=== PATIENT | female | born 1980 | race Caucasian/White ===

== ENCOUNTER 2016-10-12 17:02 | Emergency (ER) | payer SELFPAY ==
[2016-10-12 17:08] VITALS: BP 124/77
--- NOTE | 2016-10-12 17:21 | ERNOTE ---
ENT HPI Date of Service: 10/12/16 Presenting Symptoms: dental pain Time Seen by Provider: 10/12/16 17:09 Source: patient, family Exam Limitations: no limitations - Immun/Allergies/Home Medications Immunizations: IMMUNIZATION HX Immunizations Up to Date Yes History of Influenza Vaccine No Hx Pneumococcal Vaccination No Allergies/Adverse Reactions: Allergies Allergy/AdvReac Type Severity Reaction Status Date / Time acetaminophen Allergy Verified 10/12/16 17:10 [From Tylenol-Codeine #3] codeine phosphate Allergy Verified 10/12/16 17:10 [From Tylenol-Codeine #3] Home Medications: HOME MEDICATIONS Amox Tr/Potassium Clavulanate [Augmentin 500-125 Tablet] 500 mg PO TID #42 tab 10/12/16 [Last Taken Unknown] HYDROcodone/ACETAMINOPHEN [[place] 5-325] 1 - 2 tab PO QID PRN #30 tab 10/12/16 [ Last Taken Unknown] - History of Present Illness Narrative: This is a 36-year-old woman with dental pain. It began about one week ago, and worsened today. This morning she woke with her left mandible swollen and tender. There has been no fever chills or sweats. The swelling and pain have worsened. Brny-bni-ecabohf medications have not helped. She has no dental insurance, and at the present time cannot afford to see a dentist. She understands that this is the ultimate treatment that is required for her problem. Severity: Present: moderate ENT Location: Present: dental Prearrival Treatment: Present: over the counter meds Modifying Factors - Improves: Reports: nothing Modifying Factors - Worsens: Reports: heat, cold, other - eating Associated Symptoms - ENT: Reports: tooth pain, jaw swelling Prior Treament: Reports: similar symptoms before. Denies: recently seen, treated by physician, currently on antibiotics Review of Systems - Review of Systems Constitutional: Present: no symptoms reported EYE: Present: no symptoms reported ENT: Present: See HPI Respiratory: Present: no symptoms reported Cardiology: Present: no symptoms reported Gastrointestinal/Abdominal: Present: no symptoms reported Genitourinary: Present: no symptoms reported Musculoskeletal: Present: no symptoms reported Skin: Present: no symptoms reported Neurological: Present: no symptoms reported Endocrine: Present: no symptoms reported Hematologic/Lymphatic: Present: no symptoms reported Psych: Present: no symptoms reported All Other Systems: All systems neg except as marked - Patient's Past Medical History Patient History - Medical: No pertinent hx Patient History - Cardiac/Respiratory: No pertinent hx Patient History - Cancer: No Hx of Cancer Patient History - Surgical Procedures: Cholecystectomy, Tubal Ligation - Social History Living Situations: home Smoking Status: Current every day smoker Alcohol Use: occasionally Drug Use: none Physical Exam - Physical Exam General Appearance: Present: wd/wn, alert, no apparent distress Eye Exam: Normal inspection: bilateral, PERRL: bilateral, EOMI: bilateral Ears, Nose, Throat: Present: normal ENT inspection, hearing grossly normal, other - carious molar, left, mandible. The left mandible is moderately swollen and tender itself. Neck: Present: normal inspection, supple. Absent: lymphadenopathy (L) Respiratory: Present: no respiratory distress Cardiovascular/Chest: Present: regular rate, rhythm Extremity Exam: Present: no edema Neurological Exam: Present: alert, oriented Skin Exam: Present: normal color, warm/dry ED Progress - Vital Signs Patient's Vital Signs:: I have reviewed the patient's vital signs. Vital Signs: Vital Signs 10/12/16 17:04 Temperature 36.8 C Pulse Rate 97 Respiratory 12 Rate Blood Pressure 124/77 O2 Sat by Pulse 100 Oximetry - Progress/Reassessment Chief Complaint: Dental Problem Departure Clinical Impression: Dental abscess - Departure Disposition: Home self-care Condition: Good Instructions: Dental Abscess, [id number] Additional Instructions: Find a dentist miguel. Prescriptions: Amox Tr/Potassium Clavulanate [Augmentin 500-125 Tablet] 500 mg PO TID #42 tab HYDROcodone/ACETAMINOPHEN [[place] 5-325] 1 - 2 tab PO QID PRN #30 tab PRN Reason: Pain
== END 2016-10-12 17:21 | disposition home or self-care (01) ==
LOC: ER 17:02
DX: K04.7 Periapical abscess without sinus (principal); F17.210 Nicotine dependence, cigarettes, uncomplicated; Z90.49 Acquired absence of other specified parts of digestive tract

== ENCOUNTER 2016-12-02 12:59 | Emergency (ER) | payer MEDICAID, OTHER ==
[2016-12-02 13:22] VITALS: BP 127/81
--- NOTE | 2016-12-02 14:23 | ERNOTE ---
Upper Extremity HPI - Narrative Date of Service: 12/02/16 - General Extremities Pain Location: wrist: right Time Seen by Provider: 12/02/16 13:51 Source: patient Exam Limitations: no limitations - Immun/Allergies/Home Medications Immunizations: IMMUNIZATION HX Immunizations Up to Date Yes History of Influenza Vaccine No Hx Pneumococcal Vaccination No Allergies/Adverse Reactions: Allergies Allergy/AdvReac Type Severity Reaction Status Date / Time acetaminophen Allergy Verified 12/02/16 13:21 [From Tylenol-Codeine #3] codeine phosphate Allergy Verified 12/02/16 13:21 [From Tylenol-Codeine #3] Home Medications: HOME MEDICATIONS NK [No Home Medication] 12/02/16 [Last Taken Unknown] - History of Present Illness Narrative: patient states that 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 after a few min of using the maching her hand starts to tingle and go numb. she has pain during these episodes. patient states she has been wearing a cockup wrist splint at night to help with discmfort for the last 2 months. Stated that she is no longer getting relief from the splint. Occurred: other - has been present x 2 months Location of Incident: work Severity: mild Method of Injury: Reports: other - no physical injury observed, but states she has numbness and pain with Phalen test. Modifying Factors - (Improves): Reports: rest Modifying Factors - (Worsens): Reports: other - pain and numbness with phalen test Associated Symptoms: Reports: tingling, weakness, numbness distally, loss of power (rt arm) Other Injuries: Reports: none Prior Treament: Reports: other - states she was bitten by a dog on that arm 6 months ago but that has healed with out incident Review of Systems - Narrative Narrative: Patient has a positive Phalens test. states when she used a carpet machine at work her right wrist/hand starts to tingle and go numb. The rest of her upper extremities have normal ROM - Review of Systems Constitutional: Present: no symptoms reported EYE: Present: no symptoms reported ENT: Present: no symptoms reported Respiratory: Present: no symptoms reported Cardiology: Present: no symptoms reported Gastrointestinal/Abdominal: Present: no symptoms reported Genitourinary: Present: no symptoms reported Musculoskeletal: Present: no symptoms reported Skin: Present: no symptoms reported Neurological: Present: no symptoms reported, See HPI Endocrine: Present: no symptoms reported Hematologic/Lymphatic: Present: no symptoms reported Psych: Present: no symptoms reported All Other Systems: All systems neg except as marked - Patient's Past Medical History Patient History - Medical: No pertinent hx Patient History - Cardiac/Respiratory: No pertinent hx Patient History - Cancer: No Hx of Cancer Patient History - Surgical Procedures: Cholecystectomy, Tubal Ligation Patient History - Other: None - Social History Living Situations: home Abuse History: No History of abuse Psych History: Hx of Depression Smoking Status: Current every day smoker Have you smoked in the past 12 months: Yes Alcohol Use: occasionally Drug Use: none - Immunizations Immunizations Up to Date: Yes Hx Pneumococcal Vaccination: No History of Influenza Vaccine: No Physical Exam - Physical Exam General Appearance: Present: wd/wn, alert, no apparent distress Eye Exam: Normal inspection: bilateral Ears, Nose, Throat: Present: normal ENT inspection Neck: Present: normal inspection Respiratory: Present: no respiratory distress Cardiovascular/Chest: Present: regular rate, rhythm Peripheral Pulses: N=norm/S=strong/W=weak/B=bound/A=absent: Carotid (R): Normal , Carotid (L): Normal Gastrointestinal/Abdominal: Present: normal bowel sounds Extremity Exam: Present: other - phalen test positive. right wrist pain, numbness. ED Progress - Vital Signs Patient's Vital Signs:: I have reviewed the patient's vital signs. Vital Signs: Vital Signs 12/02/16 13:19 Temperature 37 C Pulse Rate 90 Respiratory 12 Rate Blood Pressure 127/81 O2 Sat by Pulse 98 Oximetry - Progress/Reassessment Chief Complaint: Upper Extremity Injury/Problem Progress:: Pain free at discharge Progress Note-Subjective: 12/02/16 14:16 Phalen test positive. Able to reproduce numbness and discomfort of right wrist. Patient is wearing a cockup wrist splint at night to help with discomfort but is not getting relief. States that pain started 2 months ago and is aggravated by using the machine she uses at work. Plan - Plan Plan: Continue to take oral Motrin as directed. Continue to wear wrist splint for support and comfort. Patient should follow up with her employer r/t this injury. Departure Clinical Impression: Carpal tunnel syndrome of right wrist - Departure Disposition: Home Follow Up Needed Condition: Good Instructions: Carpal Tunnel Syndrome, [id number], Form - Excuse from Work, School, or Physical Activity Additional Instructions: Continue to wear splint. Follow up with your employer regarding injury. May take Motrin over the counter as directed.
== END 2016-12-02 14:29 | disposition home or self-care (01) ==
LOC: ER 12:59
DX: G56.01 Carpal tunnel syndrome, right upper limb (principal); F17.210 Nicotine dependence, cigarettes, uncomplicated; X50.3XXA Overexertion from repetitive movements, initial encounter; Y93.E5 Activity, floor mopping and cleaning; Y99.0 Civilian activity done for income or pay

== ENCOUNTER 2017-04-28 17:25 | Emergency (ER) | payer MEDICAID, OTHER ==
[2017-04-28] MEDS ORDERED: KETOROLAC TROMETHAMINE 30 MG/ML VIAL IM ONE (17:37)
[2017-04-28] MEDS ORDERED: KETOROLAC TROMETHAMINE 30 MG/ML VIAL ONE (17:58)
--- NOTE | 2017-04-28 18:55 | ERNOTE ---
Upper Extremity HPI - Narrative Date of Service: 04/28/17 - General Extremities Pain Location: hand: right Time Seen by Provider: 04/28/17 17:33 Source: patient Exam Limitations: no limitations - Immun/Allergies/Home Medications Immunizations: IMMUNIZATION HX Immunizations Up to Date Yes History of Influenza Vaccine No Hx Pneumococcal Vaccination No Allergies/Adverse Reactions: Allergies Allergy/AdvReac Type Severity Reaction Status Date / Time acetaminophen Allergy Verified 04/28/17 17:31 [From Tylenol-Codeine #3] codeine phosphate Allergy Verified 04/28/17 17:31 [From Tylenol-Codeine #3] Home Medications: HOME MEDICATIONS NK [No Home Medication] 12/02/16 [Last Taken Unknown] - History of Present Illness Narrative: Right handed female who presents with right hand numbness. 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 She woke up this afternoon and her entire hand was numb. Some tingling. No focal weakness. She has some pain thet shoots out from her hand into her right middle fingers. no Sx above the wrist. No clear acute trauma. Nothing makes it better or worse. no neck pain, no radicular Sx. No other Sx anywhere else in the body. No fever. Occurred: other - Fist noticed last night, worse this afternoon. Method of Injury: Reports: other - none Modifying Factors - (Improves): Reports: other - nothing Modifying Factors - (Worsens): Reports: other - nothing Associated Symptoms: Denies: weakness, loss of power (rt arm), loss of power ( lt arm) Other Injuries: Reports: none Prior Treament: Denies: recently seen Review of Systems - Review of Systems Constitutional: Absent: fever Respiratory: Absent: shortness of breath Cardiology: Absent: chest pain Gastrointestinal/Abdominal: Absent: abdominal pain Musculoskeletal: Present: See HPI Skin: Absent: rash Neurological: Present: See HPI - Patient's Past Medical History Patient History - Medical: No pertinent hx Patient History - Cardiac/Respiratory: No pertinent hx Patient History - Cancer: No Hx of Cancer Patient History - Surgical Procedures: Cholecystectomy, Tubal Ligation Patient History - Other: None - Social History Living Situations: home Abuse History: No History of abuse Psych History: Hx of Depression Smoking Status: Current every day smoker Have you smoked in the past 12 months: Yes Alcohol Use: occasionally Drug Use: none - Immunizations Immunizations Up to Date: Yes Hx Pneumococcal Vaccination: No History of Influenza Vaccine: No Physical Exam - Physical Exam General Appearance: Present: alert, no apparent distress Head Exam: Present: normal inspection Eye Exam: Normal inspection: bilateral, PERRL: bilateral Ears, Nose, Throat: Present: normal ENT inspection Neck: Present: normal inspection Respiratory: Present: no respiratory distress Cardiovascular/Chest: Present: regular rate, rhythm, normal peripheral pulses, other - strong radial pulse Gastrointestinal/Abdominal: Present: normal bowel sounds, nontender, soft Extremity Exam: Present: normal inspection, other - there is some mild tendenress 2nd,3rd,4th fingers right. Percussion of carpal tunnel seems to increase Sx. no redness or warmth. Full ROm. NO compartment syndrome. No clear neuro deficit. no vascular deficit. No signs of gout or septic arthritis. 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 Sensation to LT present in hand but duffusely subjectively decreased. Skin Exam: Present: normal color, warm/dry. Absent: skin rash ED Progress - Vital Signs Patient's Vital Signs:: I have reviewed the patient's vital signs. Vital Signs: Vital Signs 04/28/17 17:28 Temperature 37.1 C Pulse Rate 99 Respiratory 14 Rate Blood Pressure 124/84 O2 Sat by Pulse 98 Oximetry - X-Ray X-Ray #1 X-Ray: hand Interpretation: Discd w/ radiologist X-ray Comments: I reviewed radiology report, no acute process. - Progress/Reassessment Chief Complaint: Hand Injury/Pain Progress Note-Subjective: 04/28/17 18:52 I discussed further testing with her, she declines this at this time. She prefers to go home with a splint and close f/u witha work note. No clear findings of infectious process or focal neurologic deficit. I discussed warnign signs and reasons to return as well as the need for close f/u. Departure Clinical Impression: Paresthesia - Departure Disposition: Home self-care Condition: Stable Instructions: Paresthesia Additional Instructions: Rest. Fluids. Follow-up with a doctor within 3 days for a re-check. Return for increased pain, fever, redness, swelling, weakness or if your condition worsens or changes in any way. Ibuprofen or tylenol for any pain.
[2017-04-28 19:22] VITALS: BP 105/64
== END 2017-04-28 19:02 | disposition home or self-care (01) ==
LOC: ER 17:25
DX: R20.2 Paresthesia of skin (principal); F17.200 Nicotine dependence, unspecified, uncomplicated

== ENCOUNTER 2017-06-11 12:46 | Emergency (ER) | payer OTHER ==
[2017-06-11 12:56] VITALS: BP 133/85
[2017-06-11 13:13] LABS: Hematocrit 40.6 % (37.0-47.0); Hemoglobin 13.4 gm/dL (12.5-16.0); Mean Cell Volume 83.7 fl (78-100); Mean Corpuscular Hemoglobin 27.6 pg (27-31); Mean Platelet Volume 8.6 fl (6.0-9.5); Neutrophil # 9.4 K/mm3 (1.3-6.0); Neutrophil % 69.7 % (42-75.0); Platelet Count 394 K/mm3 (150-450); Red Blood Count 4.85 M/mm3 (4.2-5.4); Red Cell Distribution Width 13.4 % (11.5-14.0); White Blood Count 13.4 K/mm3 (4.0-10.5)
[2017-06-11 13:27] LABS: Albumin * 3.5 gm/dl (3.4-5.0); Anion Gap 13.9 mmol/L (6.8-13.8); BUN/Creatinine Ratio 12.5 (9.0-21.6); Bilirubin, Total 0.3 mg/dL (0.0-1.1); Ca. Corrected For Albumin 9.2 mg/dL (8.4-10.2); Calcium * 9.1 mg/dL (7.9-10.9); Carbon Dioxide 25.2 mmol/L (24-32.6); Potassium 4.1 mmol/L (3.4-4.6); Total Protein 7.6 gm/dL (6.2-8.2)
[2017-06-11] MEDS ORDERED: MAGNESIUM CITRATE 300 ML BTL ONE (13:37)
[2017-06-11] MEDS ORDERED: BISACODYL 10 MG SUPP.RECT RC ONE ×2 (13:37→13:40)
[2017-06-11] MEDS ORDERED: MAGNESIUM CITRATE 300 ML BTL PO ONE (13:40)
--- NOTE | 2017-06-11 13:40 | ERNOTE ---
Date of Service: 06/11/17 Time Seen by Provider: 06/11/17 12:58 Stated Complaint: COLD/CONSTIPATION Presenting Symptoms:: cough Source: patient, RN notes reviewed Exam Limitations: no limitations Immunizations: IMMUNIZATION HX Immunizations Up to Date Yes History of Influenza Vaccine No Hx Pneumococcal Vaccination No Allergies/Adverse Reactions: Allergies acetaminophen [From Tylenol-Codeine #3] Allergy (Verified 06/11/17 12:56) codeine phosphate [From Tylenol-Codeine #3] Allergy (Verified 06/11/17 12:56) Home Medications: HOME MEDICATIONS NK [No Home Medication] 12/02/16 [Last Taken Unknown] - History of Present Ilness Narrative: 37 year old female ambulatory to the ED for URI symptoms that began 3 days ago. She also reports not having a bowel movement for 2 weeks. She has tried OTC medications and even tried an enema last week without results. Prior Treatment: Denies: recently seen, currently on antibiotics Review of Systems - Review of Systems Constitutional: Present: fatigue, malaise. Absent: fever, chills EYE: Absent: eye discharge, tearing ENT: Present: nose congestion, nasal drainage, sore throat. Absent: ear pain, throat swelling Respiratory: Present: cough. Absent: shortness of breath, wheezing Cardiology: Absent: chest pain, palpitations Gastrointestinal/Abdominal: Present: nausea, constipation, abdominal pain. Absent: vomiting, eating less, drinking less Genitourinary: Absent: dysuria, hematuria Musculoskeletal: Absent: muscle pain, joint pain Skin: Absent: rash, lesions Neurological: Present: dizziness/light-headedness. Absent: headache Endocrine: Present: no symptoms reported Hematologic/Lymphatic: Present: no symptoms reported Psych: Present: no symptoms reported - Patient's Past Medical History Patient History - Medical: Other Patient History - Cardiac/Respiratory: No pertinent hx Patient History - Cancer: No Hx of Cancer Patient History - Surgical Procedures: Cholecystectomy, Tubal Ligation Patient History - Other: Other LMP (females 10-50): now - Social History Living Situations: alone Abuse History: No History of abuse Psych History: Hx of Depression Smoking Status: Current every day smoker Have you smoked in the past 12 months: Yes Alcohol Use: occasionally Drug Use: none - Immunizations Immunizations Up to Date: Yes Hx Pneumococcal Vaccination: No History of Influenza Vaccine: No Physical Exam - Physical Exam General Appearance: Present: wd/wn, alert, no apparent distress, other - Disheveled, dirty appearance Head Exam: Present: normal inspection Ears, Nose, Throat: Present: nasal congestion, pharyngeal erythema, other - poor dentition. Absent: abnormal TM (R), abnormal TM (L), sinus pain/drainage, dry mucous membranes Neck: Present: normal inspection, nontender, supple. Absent: lymphadenopathy (R ), lymphadenopathy (L) Respiratory: Present: no respiratory distress, normal breath sounds, no accessory muscle use, lungs clear Cardiovascular/Chest: Present: regular rate, rhythm, no murmur Gastrointestinal/Abdominal: Present: soft, tenderness - mild, diffuse, abnormal bowel sounds - sluggish, distended - mild Extremity Exam: Present: normal inspection, normal range of motion, no edema Neurological Exam: Present: alert, oriented, normal mood/affect, no motor/ sensory deficits Skin Exam: Present: normal color, warm/dry ED Progress - Results and Orders Patient's Lab Results:: I have reviewed the patient's lab results. - Vital Signs Patient's Vital Signs:: I have reviewed the patient's vital signs. Vital Signs: Vital Signs 06/11/17 06/11/17 12:47 13:24 Temperature 36.9 C Pulse Rate 98 98 Respiratory 14 Rate Blood Pressure 133/85 O2 Sat by Pulse 99 Oximetry - X-Ray X-Ray #1 X-Ray: chest Interpretation: Interp. by me X-ray Comments: No acute cardiopulmonary abnormalities noted X-Ray #2 X-Ray: abdomen Interpretation: Interp. by me X-ray Comments: Nonobstructive bowel gas pattern with severe fecal retention - Progress/Reassessment Chief Complaint: Upper Respiratory Symptoms Progress:: Unchanged Departure - Departure Clinical Impression: Upper respiratory infection, viral Constipation Qualifiers: Constipation type: unspecified constipation type Qualified Code(s): K59.00 - Constipation, unspecified Disposition: Home self-care Condition: Stable Instructions: Constipation, Adult, [id number], Upper Respiratory Infection, Adult, [id number], Form - Excuse from Work, School, or Physical Activity Additional Instructions: Drink entire bottle of magnesium citrate when you get home and use suppository Return to ER if you have not had results by this time tomorrow Follow up with your doctor if your cold symptoms last longer than 7 to 10 days
== END 2017-06-11 13:46 | disposition home or self-care (01) ==
LOC: ER 12:46
DX: J06.9 Acute upper respiratory infection, unspecified (principal); B97.89 Other viral agents as the cause of diseases classified elsewhere; K59.00 Constipation, unspecified; F17.200 Nicotine dependence, unspecified, uncomplicated

== ENCOUNTER 2017-07-23 10:25 | Day surgery (SDC) | payer OTHER ==
[~2017-07-23 10:25] MED LIST: ACETAMINOPHEN 500 MG TABLET PO PRN; HYDROmorphone HCL 2 MG/ML VIAL IV PRN; MAG HYDROX/ALUMINUM HYD/SIMETH 30 ML UDC PO PRN; MAGNESIUM HYDROXIDE 30 ML UDC PO PRN; ONDANSETRON HCL/PF 2 MG/ML VIAL IV PRN; PROMETHAZINE HCL 25 MG in DEXTROSE 5 % IN WATER 50 ML IV PRN; RINGER'S SOLUTION,LACTATED 1,000 ML IV PRN; ZOLPIDEM TARTRATE 5 MG TABLET PO PRN; ceFAZolin SODIUM 1 GM VIAL IV PRN; diphenhydrAMINE HCL 50 MG/ML VIAL IV PRN; oxyCODONE HCL/ACETAMINOPHEN 1 TAB TABLET PO PRN
[2017-07-23] MEDS ORDERED: BUPIVACAINE HCL 50 ML VIAL IJ ONE (11:35)
--- NOTE | 2017-07-23 12:14 | OR ---
Operative Report - Dictated Report Narrative: Date: 07/23/2017 Physician: Ramu Brar M.D. Protein Purification Scientist: Dung David PA-C Preoperative diagnosis: Right Carpal tunnel syndrome Postoperative diagnosis: Right Carpal tunnel syndrome Procedure: Open right carpal tunnel release Anesthesia: MAC plus local Complications: None Estimated blood loss: Minimal Tourniquet time: 10 Minutes at 250 mmHg Specimens: None Retained implants: None Drains: None Indications: Iris Is a 37 year-old female who has been followed in my clinic with complaints of carpal tunnel syndrome. Physical exam as well as diagnostic testing showed compression of the median nerve compatible with carpal tunnel syndrome. Conservative measures have failed including but not limited to activity modification, medications, and/or bracing. The risks, benefits, and alternatives were discussed in clinic. The risks being bleeding, infection, nerve, tendon, blood vessel injury, persistent pain, wound complications, weakness, palm pain, need for additional procedures, and persistent symptoms. Consent was obtained in the clinic. Procedure: After marking the correct extremity in the preoperative holding area, a timeout was performed in the operating room. IV antibiotics consisting of 1 g of Ancef were administered prior to the procedure. A well-padded tourniquet was applied to the operative upper arm. The arm was exsanguinated and the tourniquet was inflated to 250 mmHg. 0.5% Marcaine without epinephrine was infused into the projected incision site. Using Loupe magnification, a longitudinal incision was made in line with the longitudinal hypothenar crease, or approximately in line with the ring finger, from just distal to the wrist flexion crease and extending approximately 2.5 cm distally. Blunt dissection and hemostasis with bipolar cautery was carried out throught the subcutaneous tissue and palmar fascia down to the level of the transverse carpal ligament. Ragnel retractors were used to retract the surrounding soft tissue and provide good visualization of the transverse carpal ligament. The transverse carpal ligament was then sharply incised longitudinally with a 15-blade scalpel. A [place] elevator was then slid underneath the transverse carpal ligament distally, protecting the median nerve, and the remaining distal portion of the transverse carpal ligament was sharply divided. This was then repeated proximally to divide the remaining proximal portion. Tenotomy scissors were used to divide any remaining transverse carpal ligament and palmar fascia distally being careful to avoid the superficial palmar arch. The distal forearm fascia was released ensuring that the median nerve was completely decompressed utilizing tenotomy scissors. The median nerve was then carefully inspected. Once it was felt that all the tissues overlying the median nerve were completely released, the wounds were thoroughly irrigated with saline. Tourniquet was deflated and hemostasis was obtained with pressure as well as bipolar cautery. Once bleeding had resolved and there was no excessive bleeding, the wounds were closed with interrupted 4-0 nylon. Xeroform, 4 x 4's, soft roll, and a well- padded dorsal short arm wrist splint was applied. The patient was awoken and transferred to the post-anesthesia care unit in stable condition. All sponge, needle, blade, and instrument counts were correct prior to closing the wounds. Additional 0.5% Marcaine without epinephrine was infused into the skin edges for pain control.
[2017-07-23 13:50] VITALS: BP 114/71
[2017-07-23] MEDS ORDERED: SENNOSIDES/DOCUSATE SODIUM 1 TAB TABLET PO SCH (21:00)
== END 2017-07-23 10:26 | disposition home or self-care (01) ==
LOC: AMB 10:25
PROVIDERS: ATTEND Orthopaedic Surgery
PROC: 01N50ZZ Release Median Nerve, Open Approach (ICD-10-PCS; principal; 2017-07-23 14:30)
DX: G56.01 Carpal tunnel syndrome, right upper limb (principal); F17.200 Nicotine dependence, unspecified, uncomplicated; Z68.26 Body mass index [BMI] 26.0-26.9, adult